=== PATIENT | female | born 1955 | race Caucasian/White ===

== ENCOUNTER 2017-09-17 17:36 | Inpatient (IN) | payer BC, OTHER, SELFPAY ==
[~2017-09-17 17:36] MED LIST: Iopamidol 370 76% 100 ML VIAL ONE
[2017-09-17] MEDS ORDERED: Morphine 4 MG/ML Carpuject ONE (18:22)
[2017-09-17] MEDS ORDERED: Promethazine HCl 25 MG/ML VIAL ONE (18:22)
[2017-09-17 18:29] LABS: Bilirubin Negative (Negative); Blood, Urine Trace (Negative); Glucose, Urine (Dipstick) Negative (Negative); Ketone, Urine Negative (Negative); Nitrite Negative (Negative); Protein, Urine (Dipstick) Negative (Neg-Trace); Urobilinogen 0.2 mg/dL (0.2-1.0)
[2017-09-17 18:38] LABS: Bacteria/HPF 1+ HPF (None Seen); RBC/HPF 0-3 HPF (0-3); WBC/HPF None Seen HPF (0-3)
[2017-09-17 18:51] LABS: #Basophils 0.3 thou/uL (0.0-0.2); #Eosinphils 0.2 thou/uL (0.0-0.7); #Lymphocytes 3.4 thou/uL (1.20-3.40); %Basophils 1.7 % (0.0-1.0); %Eosinophils 1.4 % (0.0-10.0); %Lymphocytes 19.9 % (21.0-51.0); Hematocrit 44.3 % (36.0-47.0); Mean Platelet Volume 7.7 fL (7.4-10.4); White Blood Cell (WBC) Count 16.9 thou/uL (4.8-10.8)
[2017-09-17 18:59] LABS: Lactic Acid - Sepsis 1.4 mmol/L (0.5-2.2)
[2017-09-17 19:03] LABS: ALT (SGPT) 18 U/L (8-55); AST (SGOT) 13 U/L (5-34); Alkaline Phosphatase 88 U/L (40-150); Anion Gap 14 mmol/L (10-20); BUN (Urea Nitrogen) 9 mg/dL (9.8-20.1); Bilirubin, Total 0.4 mg/dL (0.2-1.2); Calc. Creatinine Clearance 0 mL/min (70-130); Calcium 9.4 mg/dL (7.8-10.44); Carbon Dioxide 23 mmol/L (23-31); Chloride 107 mmol/L (98-107); Estimated GFR-MDRD 88; Globulin 2.7 g/dL (2.4-3.5); Lipase 18 U/L (8-78); Protein, Total 6.7 g/dL (6.0-8.3)
--- NOTE | 2017-09-17 20:41 | CT ---
CT ABDOMEN AND PELVIS WITH IV AND ORAL CONTRAST 09/17/17 HISTORY: Right lower quadrant pain. Nausea, vomiting, fever. FINDINGS: The lung bases are clear. The liver, spleen, kidneys, adrenal glands, and pancreas have a normal CT a ppearance. There is calcification in the arterial structures. The appendix shows a mildly thickened w all and is surrounded by subtle inflammation in the adjacent fat. Gas remains within the appendiceal lumen. No free air or free fluid are apparent. Small hiatal hernia is noted. IMPRESSION: 1. Acute appendicitis, noncomplicated. 2. Atherosclerosis. POS: [facility] [place]
[2017-09-17] MEDS ORDERED: Piperacillin/Tazobactam 3.375 GM VIAL ONE (20:48)
[2017-09-17] MEDS ORDERED: Ondansetron ODT 4 MG TAB PO PRN (20:55)
[2017-09-17] MEDS ORDERED: Morphine 4 MG/ML Carpuject IVP PRN (20:55)
[2017-09-17] MEDS ORDERED: Ondansetron HCl/PF 4 MG/2 ML Vial IVP PRN (20:55)
[2017-09-17] MEDS ORDERED: Enoxaparin Sodium 40 MG/0.4 ML SYRINGE SC SCH (21:00)
[2017-09-17] MEDS ORDERED: Scopolamine 1.5 mg/72 hour Patch TD SCH (21:30)
[2017-09-17] MEDS: Lactated Ringer's 1,000 ML IV SCH (23:17)
[2017-09-17] MEDS: Acetaminophen 1,000 MG in Premix Bag 1 BAG IVPB SCH (23:18)
[2017-09-17] MEDS: Ketorolac Tromethamine 30 MG/ML VIAL IVP SCH (23:18)
[2017-09-17] MEDS: Famotidine/PF 20 mg/2ml Vial SLOW IVP SCH (23:18)
[2017-09-17 23:48] VITALS: BMI 35.7
[2017-09-18] MEDS: Piperacillin/Tazobactam 3.375 GM in Sodium Chloride 0.9% 100 ML IVPB SCH ×2 (02:45→09:26)
[2017-09-18] MEDS: Ketorolac Tromethamine 30 MG/ML VIAL IVP SCH ×2 (06:04→13:39)
[2017-09-18] MEDS: Acetaminophen 1,000 MG in Premix Bag 1 BAG IVPB SCH ×2 (06:04→13:39)
--- NOTE | 2017-09-18 08:35 | HP ---
HISTORY OF PRESENT ILLNESS: Aletha Jsoeph is a 62-year-old female from [place] who works at [employer]. She had onset of pain yesterday about noon, developed nausea and vomiting about 4:00 p.m. She h as not had any fevers. She has suffered anorexia. She presented to the emergency room. CAT scan ve rified appendicitis. White blood cell count was 16. Comprehensive metabolic profile was otherwise n ormal. ALLERGIES: None. SOCIAL HISTORY: Tobacco less than one-half pack per day. Alcohol rarely. MEDICATIONS: Citalopram 40 mg at bedtime. PAST SURGICAL HISTORY: Total abdominal hysterectomy, bilateral salpingo-oophorectomy for endometrios is. The patient is followed by Dr. Alex Watters. PAST MEDICAL HISTORY: Anxiety. REVIEW OF SYSTEMS: Ten point noncontributory. No history of coronary disease, chest pain, chest pre ssure or chorionic workup. PHYSICAL EXAMINATION: VITAL SIGNS: Height 5 foot 4, 208 pounds, 35 BMI, 98.2, 80, 16, 108/74. HEENT: Unremarkable. LUNGS: Clear to auscultation. CARDIAC: Regular rate and rhythm without murmur or gallop. ABDOMEN: Soft, tenderness in right lower quadrant with guarding and rebound. Positive Rovsing. EXTREMITIES: Unremarkable. LYMPH: No lymphadenopathy, cervical, axillary groin. NEURO: Neurologically intact. SKIN: Normal turgor. ASSESSMENT AND PLAN: Acute appendicitis. Recommend laparoscopic video appendectomy. Risk of infect ion, bleeding, visceral injury, possibly open procedure discussed. Questions answered. Plan laparos copic appendectomy today and discharged home postoperatively.
[2017-09-18] MEDS ORDERED: Bupivacaine/Epinephrine 0.25% 30 ML VIAL ONE (10:12)
[2017-09-18] MEDS ORDERED: Fentanyl 100 MCG/2 ML VIAL ONE ×2 (10:18→12:42)
[2017-09-18] MEDS ORDERED: Midazolam HCl 2 mg/2 ml Vial ONE (10:18)
[2017-09-18] MEDS ORDERED: Succinylcholine Chloride 20 MG/ML 10 ml SYRINGE FS ONE (11:01)
[2017-09-18] MEDS ORDERED: Lidocaine 1% PF 5 ML VIAL ONE (11:01)
[2017-09-18] MEDS ORDERED: Dexamethasone 20 MG/5 ML VIAL ONE (11:01)
[2017-09-18] MEDS ORDERED: Ondansetron HCl/PF 4 MG/2 ML Vial ONE (11:01)
[2017-09-18] MEDS ORDERED: Propofol 200 MG/20 ML VIAL ONE (11:01)
[2017-09-18] MEDS ORDERED: Glycopyrrolate 0.2 MG/ML 5 ML SYRINGE ONE (11:01)
[2017-09-18] MEDS ORDERED: Ondansetron HCl/PF 4 MG/2 ML Vial IVP PRN (11:59)
[2017-09-18] MEDS ORDERED: Promethazine HCl 25 MG/ML VIAL SLOW IVP PRN (11:59)
[2017-09-18] MEDS ORDERED: Promethazine HCl 25 MG/ML VIAL IM PRN (11:59)
--- NOTE | 2017-09-18 12:28 | OP ---
DATE OF PROCEDURE: 09/18/2017 PREOPERATIVE DIAGNOSIS: Acute appendicitis. POSTOPERATIVE DIAGNOSIS: Acute appendicitis with gangrenous appendix. PROCEDURES: Laparoscopic video appendectomy, removal of the appendix in the Endobag. SURGEON: Dr. Mikhail Harrington ANESTHESIA: General. Local 0.5% Marcaine with epinephrine, 30 mL. PROCEDURE: The patient was taken to the operating room where under general anesthesia, Bashir cathete r placed at the beginning of the procedure and removed at the end. Abdomen clipped of hair, prepared with ChloraPrep, draped in routine fashion. Local anesthetic infiltrated into skin and subcutaneous tissue about each port site. Infraumbilical incision made and pneumoperitoneum to 15 mmHg obtained with the Veress needle, replacing it with a 5 port and laparoscope inserted. Right subcostal lateral incision made and a [address] Suprapubic incision made and a 12 port placed. Appendix was acut satnam inflamed surrounded by omentum. This was removed with blunt dissection, the appendix identified. Mesoappendix taken down with the LigaSure to the stump of the appendix, divided the cecal stump wit h Endo blue load RAJNI stapler. Stapled cecal stump was hemostatic and secure as the appendix placed i n Endobag and removed. Suprapubic fascia approximated with 0 Vicryl. Area of dissection irrigated a nd irrigant evacuated. Hemostasis gained with the LigaSure. Good hemostasis noted. Pneumoperitoneu m and irrigant evacuated. All instruments removed and all skin incisions approximated with interrupt ed subdermal 4-0 Monocryl and DermaGlue applied.
--- NOTE | 2017-09-18 13:05 | DIS ---
DISCHARGE DIAGNOSES: 1. Acute appendicitis. 2. Obesity. 3. Anxiety. 4. Tobacco abuse. PROCEDURE: Laparoscopic video appendectomy. HISTORY: A 62-year-old female who presents to the emergency room after onset of pain yesterday follo thu by anorexia, increased pain with movement. CAT scan confirmed appendicitis correlating with exam . The patient was admitted for intravenous antibiotics and taken for laparoscopic video appendectomy on 09/18/2017 with findings of a gangrenous appendix without purulence. Laparoscopic appendectomy u ndertaken. The patient is sent home to resume her home medications citalopram 40 mg at bedtime as we ll as Augmentin 500 mg p.o. b.i.d. for 7 days. She is to follow up in my office in approximately 2 w eeks. Diet and activity as tolerated. Ibuprofen and Tylenol as needed for pain, Ultram if necessary #20, one refill.
[2017-09-18] MEDS ORDERED: traMADol HCl 50 MG TAB PO PRN ×2 (13:20)
[2017-09-18] MEDS ORDERED: Ibuprofen 600 MG TAB PO PRN (13:20)
[2017-09-18] MEDS ORDERED: Acetaminophen 500 MG TAB PO PRN (13:20)
[2017-09-18 13:39] VITALS: BP 109/73; TEMP 98.2
[2017-09-18] MEDS: Famotidine/PF 20 mg/2ml Vial SLOW IVP SCH (13:39)
[2017-09-18] MEDS: Lactated Ringer's 1,000 ML IV SCH (13:39)
== END 2017-09-18 17:54 | disposition home or self-care (01) | DRG 343 ==
LOC: SCSER 17:36 → SURG A 20:40 → OBSVTOIN 20:40
PROVIDERS: ADMIT Specialist; ATTEND Specialist
PROC: 0DTJ4ZZ Resection of Appendix, Percutaneous Endoscopic Approach (ICD-10-PCS; principal; 2017-09-18)
DX: K35.80 Unspecified acute appendicitis (principal); E66.9 Obesity, unspecified; Z68.35 Body mass index [BMI] 35.0-35.9, adult; F41.9 Anxiety disorder, unspecified; F17.210 Nicotine dependence, cigarettes, uncomplicated
CPT/HCPCS: 74177; 80053; 81003; 81015; 83605; 83690; 85025; 88304; 93005; 96365; 96366; 96368; 96375; 96376; 99406; J0131; J1100; J1650; J1885; J2001; J2250; J2270; J2405; J2543; J2550; J2704; J3010; J7050; S0028